=== PATIENT | male | born 1955 | race African-American/Black ===

== ENCOUNTER → 2017-06-18 | Outpatient (CLI) | payer BC ==
--- NOTE | 2017-06-18 14:52 | DIAGNOSTIC IMAGING REPORT ---
TESTICULAR ULTRASOUND HISTORY: N43.3 Hydrocele COMPARISON: None. FINDINGS: Right testis: 4.7 x 3.2 x 2.6 cm. There are no intratesticular masses. Normal color flow. Small hydrocele. A 6 mm cyst within the head of the epididymis. Left testis: 4.4 x 2.8 x 2.9 cm. There are no intratesticular masses. Normal color flow. Large hydrocele measuring up to 10 cm in diameter. The epididymis is unremarkable. IMPRESSION: Large left and small right hydroceles. Electronically signed by: Earle Kumar M.D. 06/18/2017 2:50 PM Dictated Date/Time: 06/18/2017 2:49 PM
== END | disposition home or self-care (01) ==
LOC: C.ULTR 13:55
PROVIDERS: ATTEND Urology
DX: N43.3 Hydrocele, unspecified (principal); Z12.5 Encounter for screening for malignant neoplasm of prostate

== ENCOUNTER → 2017-10-18 | Day surgery (SDC) | payer BC ==
[2017-10-01 14:52] VITALS: BMI 38.0
--- NOTE | 2017-10-01 15:17 | PAT Medication Instructions ---
Service Date Oct 01, 2017. Current Home Medication List Amlodipine (Norvasc), 5 MG PO QAM Irbesartan (Irbesartan), 1 TAB PO QAM Levothyroxine Sodium (Levothyroxine Sodium), 225 MCG PO QAM Simvastatin (Zocor), 20 MG PO QPM Terazosin Hcl (Hytrin), 10 MG PO QPM Zolpidem Tartrate (Ambien), 10 MG PO HS PRN for PRN Medication Instructions For Your Scheduled Surgery - Hold the following medications the morning of surgery: Irbesartan (Irbesartan), 1 TAB PO QAM - Take the following medications the morning of surgery with a sip of water: Amlodipine (Norvasc), 5 MG PO QAM Levothyroxine Sodium (Levothyroxine Sodium), 225 MCG PO QAM - Take the following medications as scheduled the night before surgery: Zolpidem Tartrate (Ambien), 10 MG PO HS PRN for PRN (if needed) Simvastatin (Zocor), 20 MG PO QPM Terazosin Hcl (Hytrin), 10 MG PO QPM If you have any questions please call us at [phone] or [phone] or [phone]
[2017-10-01 16:13] LABS: BASO % 0.6 %; BASO ABS # 0.04 K/uL (0-0.2); EOS % 2.1 %; EOS ABS # 0.15 K/uL (0-0.5); HEMATOCRIT 41.6 % (42-52); HEMOGLOBIN 13.9 g/dL (14.0-18.0); IG# 0.01 K/uL (0.00-0.02); LYMPH % 31.6 %; LYMPH ABS # 2.23 K/uL (1.2-3.4); MEAN CELL VOLUME 89.1 fL (80-100); MEAN CORPUSCULAR HEMOGLOBIN 29.8 pg (25-34); MEAN CORPUSCULAR HGB CONC 33.4 g/dl (32-36); MONO % 7.8 %; MONO ABS # 0.55 K/uL (0.11-0.59); NEUT % 57.8 %; NEUT ABS # 4.08 K/uL (1.4-6.5); PLATELET COUNT 270 K/uL (130-400); RED CELL DISTRIBUTION WIDTH CV 13.8 % (11.5-14.5); RED CELL DISTRIBUTION WIDTH SD 45.1 fL (36.4-46.3); WHITE BLOOD COUNT 7.06 K/uL (4.8-10.8)
[2017-10-01 16:20] LABS: CALCIUM 8.9 mg/dl (8.5-10.1); CREATININE 1.25 mg/dl (0.60-1.40)
--- NOTE | 2017-10-01 16:51 | DIAGNOSTIC IMAGING REPORT ---
CHEST 2 VIEWS ROUTINE CLINICAL HISTORY: Preoperative evaluation. COMPARISON STUDY: No previous studies for comparison. FINDINGS: Lung volumes are normal. There is no consolidation to suggest pneumonia and there is no evidence for pulmonary edema. There is moderate cardiomegaly. No pneumothorax or pleural effusion is noted. IMPRESSION: 1. No acute cardiopulmonary findings. 2. Moderate cardiomegaly. Electronically signed by: Sanju Goldstein M.D. 10/01/2017 4:50 PM Dictated Date/Time: 10/01/2017 4:49 PM
[~2017-10-18] VITALS: Ht 190.5 cm; Wt 137.5 kg
[~2017-10-18] MED LIST: AMLO-110 PO; ATROPINE SULFATE 0.1 MG/ML 5ML SYR IV PRN; BACITRACIN OINT 15 GM TUBE ONE; BUPIVACAINE 0.5 % 5 MG/1 ML MPF 30ML VIAL ONE; CIPROFLOXACIN / D5W 400 MG IV SCH; EpHEDrine SULFATE INJ 50 MG/ML AMP IV PRN; FENTANYL CITRATE INJ 50 MCG/1 ML 2 ML VIAL IV PRN; FENTANYL CITRATE INJ 50 MCG/1 ML 2 ML VIAL ONE; IRBE1TAB50 PO; LACTATED RINGER'S 1000ML 1,000 ML IV SCH; LEVO200T6 PO; LIDOCAINE HCL 2% 2 ML VIAL (20MG/ML) ONE; ONDANSETRON INJ 2 MG/ML 2 ML VIAL IV PRN; ONDANSETRON INJ 2 MG/ML 2 ML VIAL ONE; OXYC-57 PO; OXYCODONE/ACETAMINOPHEN 5-325 TAB ONE; OXYCODONE/ACETAMINOPHEN 5-325 TAB PO PRN; PROMETHAZINE HCL INJ 6.25 MG in SODIUM CHLORIDE 0.9% 50ML 50 ML IV PRN; PROPOFOL IV EMULSION 10 MG/ML 20 ML VIAL IV ONE; SIMV20TA2 PO; TERA1CAP63 PO; ZOLP10TA PO
[2017-10-18 08:25] VITALS: BP 144/80; PULSE 77; TEMP 36.8; O2SAT 97; Ht 190.5 cm; Wt 137.5 kg
--- NOTE | 2017-10-18 09:24 | History & Physical Bridge Note ---
H&P Re-Evaluation Bridge Note: I have examined the patient, reviewed the History & Physical and in the interval since the performance of the History & Physical I have noted the following changes of clinical significance: No changes noted
--- NOTE | 2017-10-18 10:46 | [facility] Post Operative Brief Note ---
Immediate Operative Summary Operative Date Oct 18, 2017. Pre-Operative Diagnosis Left hydrocele Post-Operative Diagnosis Same as preop Procedure(s) Performed Left Scrotal Hyrdrocelectomy Surgeon Dr. Phelan Mobility Architect Surgeon(s) none Estimated Blood Loss 3 cc Findings Consistent with Post-Op Diagnosis Specimens A: hydrocele sac Drains None Anesthesia Type General Complication(s) none Disposition Accompanied Pt To Recover: yes Disposition: Recovery Room / PACU
--- NOTE | 2017-10-18 10:48 | Discharge Instructions ---
Discharge Instructions Date of Service Oct 18, 2017. Visit Reason for Visit: Hydrocele Discharge Discharge Diagnosis / Problem: Left hydrocele Discharge Goals Goal(s): Therapeutic intervention Activity Recommendations Activity Limitations: as noted below Lifting Limitations: no more than 10 pounds Exercise/Sports Limitations: until after follow-up appointment May Resume Sexual Activity: after follow-up appointment Shower/Bathe: no limitations Driving or Machine Use: resume 1 day after discharge Anesthesia . Post Anesthesia Instructions: If you have had General Anesthesia or IV Sedation: * Do not drive today. * Resume driving when surgeon permits. * Do not make important decisions or sign legal documents today. * Call surgeon for: 1. Temperature elevations greater than 101 degrees F. 2. Uncontrollable pain. 3. Excessive bleeding. 4. Persistent nausea and vomiting. 5. Medication intolerance (nausea, vomiting or rash). * For nausea and vomiting use only clear liquids such as: tea, soda, bouillon until nausea subsides, then gradually increase diet as tolerated. * If you have any concerns or questions, call your surgeon's office. If physician is unavailable and it is an emergency, call 911 or go to the nearest emergency room. . Diet Recommendations Recommended Home Diet: resume previous diet Procedures Procedures Performed: Left Scrotal Hyrdrocelectomy Pending Studies Studies pending at discharge: no Medical Emergencies . Who to Call and When: Medical Emergencies: If at any time you feel your situation is an emergency, please call 911 immediately. . Non-Emergent Contact Non-Emergency issues call your: Urologist Call Non-Emergent contact if: temperature is above 101.5, your pain is not controlled . . "Provider Documentation" section prepared by Socrates Phelan. . [place] Drug Monitoring Program Search Results: patient reviewed within database
--- NOTE | 2017-10-18 11:01 | [facility] Operative Report ---
Operative Report Operative Date Oct 18, 2017. Pre-Operative Diagnosis Left hydrocele Post-Operative Diagnosis Same as preop Procedure(s) Performed Left Scrotal Hyrdrocelectomy Surgeon Dr. Phelan Swine Extension Field Specialist Surgeon(s) none Estimated Blood Loss 3 cc Findings Patient had a moderate-sized left hydrocele Specimens A: hydrocele sac Complication(s) None Disposition Recovery Room / PACU Indications Patient is a 62-year-old black male with a left hydrocele which had become somewhat bothersome to him. He elected to have a hydrocelectomy Description of Procedure After the induction of an adequate general anesthetic and appropriate timeout patient was supine on operating table. Lower abdomen and genitalia scrotum were prepped with Betadine scrub and painted with Betadine paint and draped in a sterile fashion. Transverse incision was made in the left hemiscrotum being carried down through skin and subcutaneous tissues and through the dartos layer. The hydrocele sac was identified and bluntly dissected from the surrounding tissues. The sac was then extruded from the incision small incision was made in the sac and clear fluid was drained. The sac was then trimmed and electrocautery was used to coagulate any bleeding points. The sac was then inverted behind the testicle lightly sutured in place with a 2-0 Vicryl wound was then irrigated and any bleeding points were electrocoagulated. Testicle was then placed in its normal anatomic position back into the left hemiscrotum. The wound was then closed in 2 layers. The dartos layer was closed with a running locked 2-0 chromic. The skin was closed with 3-0 chromic in a vertical mattress configuration. Half percent plain lidocaine was injected around the incision. Wound was then washed and dried and Xeroform gauze fluffed gauze and a scrotal support were applied. All needle sponge and instrument counts were correct at the end of the case. The patient tolerated the procedure well and was taken recovery room in stable condition. I attest to the content of the Intraoperative Record and any orders documented therein. Any exceptions are noted below.
[2017-10-18 11:30] VITALS: BP_SYST 81; PULSE 66; TEMP 36.5; O2SAT 92
--- NOTE | 2017-10-18 11:30 | Anesthesiology Progress Note ---
Anesthesia Post Op Note Date & Time Oct 18, 2017 at 11:30 Vital Signs Pain Intensity: 0 Vital Signs Past 12 Hours Date Time Temp Pulse Resp B/P (MAP) Pulse Ox O2 Delivery O2 Flow Rate FiO2 10/18/17 11:23 68 13 97 10/18/17 11:23 61 13 10/18/17 11:21 146/77 10/18/17 11:18 58 15 10/18/17 11:18 61 15 93 10/18/17 11:17 68 15 96 10/18/17 11:17 65 15 10/18/17 11:16 133/77 10/18/17 11:12 61 15 10/18/17 11:12 61 15 96 10/18/17 11:11 135/69 10/18/17 11:10 36.7 65 16 135/69 (89) 96 Nasal Cannula 2 10/18/17 11:07 85 16 93 10/18/17 11:07 82 16 10/18/17 11:06 70 21 141/72 96 10/18/17 11:06 70 21 10/18/17 11:05 159/71 10/18/17 11:01 70 14 143/118 98 10/18/17 11:01 70 14 10/18/17 11:00 76 15 97 10/18/17 11:00 77 15 10/18/17 10:56 138/89 10/18/17 10:55 73 13 95 10/18/17 10:55 71 13 10/18/17 10:51 134/78 10/18/17 10:50 68 13 94 10/18/17 10:50 69 13 10/18/17 10:46 139/71 10/18/17 10:45 36.6 68 13 139/71 (103) 92 Oxymask 10 10/18/17 08:25 36.8 77 18 144/80 (101) 97 Room Air Notes Mental Status: alert / awake / arousable, participated in evaluation Pt Amnestic to Procedure: Yes Nausea / Vomiting: adequately controlled Pain: adequately controlled Airway Patency, RR, SpO2: stable & adequate BP & HR: stable & adequate Hydration State: stable & adequate Anesthetic Complications: no major complications apparent
[2017-10-18 11:53] VITALS: BP 141/83; PULSE 63; O2SAT 95
[2017-10-18 12:26] VITALS: BP 150/83; PULSE 56; TEMP 36.6; O2SAT 96
[2017-10-18 13:00] VITALS: BP 142/75; PULSE 63; O2SAT 95
== END | disposition home or self-care (01) ==
LOC: C.ACU 08:09
PROVIDERS: ATTEND Urology
DX: N43.3 Hydrocele, unspecified (principal); N40.1 Benign prostatic hyperplasia with lower urinary tract symptoms; N13.8 Other obstructive and reflux uropathy; E78.00 Pure hypercholesterolemia, unspecified; I10 Essential (primary) hypertension; Z82.49 Family history of ischemic heart disease and other diseases of the circulatory system; Z80.3 Family history of malignant neoplasm of breast; Z79.899 Other long term (current) drug therapy

== ENCOUNTER → 2018-01-29 | Outpatient (CLI) | payer BC ==
[~2018-01-29] MED LIST changes: -ATROPINE SULFATE 0.1 MG/ML 5ML SYR IV PRN; -BACITRACIN OINT 15 GM TUBE ONE; -BUPIVACAINE 0.5 % 5 MG/1 ML MPF 30ML VIAL ONE; -CIPROFLOXACIN / D5W 400 MG IV SCH; -EpHEDrine SULFATE INJ 50 MG/ML AMP IV PRN; -FENTANYL CITRATE INJ 50 MCG/1 ML 2 ML VIAL IV PRN; -FENTANYL CITRATE INJ 50 MCG/1 ML 2 ML VIAL ONE; -LACTATED RINGER'S 1000ML 1,000 ML IV SCH; -LIDOCAINE HCL 2% 2 ML VIAL (20MG/ML) ONE; -ONDANSETRON INJ 2 MG/ML 2 ML VIAL IV PRN; -ONDANSETRON INJ 2 MG/ML 2 ML VIAL ONE; -OXYCODONE/ACETAMINOPHEN 5-325 TAB ONE; -OXYCODONE/ACETAMINOPHEN 5-325 TAB PO PRN; -PROMETHAZINE HCL INJ 6.25 MG in SODIUM CHLORIDE 0.9% 50ML 50 ML IV PRN; -PROPOFOL IV EMULSION 10 MG/ML 20 ML VIAL IV ONE
== END | disposition home or self-care (01) ==
LOC: C.PATHSPEC 17:20
PROVIDERS: ATTEND Urology
DX: R31.0 Gross hematuria (principal)